=== PATIENT | male | born 1950 | race Caucasian/White ===

== ENCOUNTER 2024-04-19 07:37 | Day surgery (SDC) | payer OTHER, SELFPAY ==
[2024-04-14 11:12] VITALS: BMI 36.2
[2024-04-19 09:28] VITALS: PULSE 111; RESP 18; TEMP 36.2
--- NOTE | 2024-04-19 09:28 | P.CONAN_ITS ---
HPI - Anesthesia Eval Consult details Narrative: 73 yo male patient for Right Cataract extraction, IOL insertion PMFSH Past Medical History Medical History Cataracts, bilateral Personal history of COVID-19 (~04/2023) Umbilical hernia Hx of hypokalemia Varicose veins of legs Wears dentures Dependent on walker for ambulation Bailey's cyst Osteoarthritis Low vitamin D level Hx of deep venous thrombosis Anemia Chronic renal insufficiency Depression Dizziness Hx of seizure disorder LEÓN (obstructive sleep apnea) QUINAULT (hard of hearing) Moderate cognitive impairment Tremor Murmur Aortic stenosis HLD (hyperlipidemia) CHF (congestive heart failure) HTN (hypertension) Family History Family history of problems with anesthesia: No Surgical History History of Problems with Anesthesia: No Social History Social History Are you a primary healthcare risk control consultant to a significant other at home: No Patient Tobacco Use Status: Never used Tobacco Use of substances other than those prescribed or required for medical reasons: No Are you DNR?: Yes Advance Directives: No Advance Directives Information Provided: Yes Advance Directives on File: No Recently lost weight without trying: No Nutrition Risks: No Nutritional Risk Meds Allergies Allergy/AdvReac Type Severity Reaction Status Date / Time No Known Allergies Allergy Verified 04/16/24 08:08 Home Medications ?Medication ?Instructions ?Recorded ?Confirmed ?Last Taken ?Type apixaban 5 mg tablet 5 mg PO BID 04/14/24 04/14/24 Unknown History cholecalciferol (vitamin D3) 125 125 mcg PO DAILY 04/14/24 04/14/24 Unknown History mcg (5,000 unit) tablet (Vitamin D3) divalproex 500 mg tablet,extended 1,000 mg PO BID 04/14/24 04/14/24 Unknown History release 24 hr hydrochlorothiazide 25 mg tablet 25 mg PO DAILY 04/14/24 04/14/24 Unknown History melatonin 3 mg tablet 3 mg PO BEDTIME 04/14/24 04/14/24 Unknown History omega-3 fatty acids-fish oil 684 1 cap PO DAILY 04/14/24 04/14/24 Unknown History mg-1,200 mg capsule,delayed release phenytoin sodium extended 100 mg 200 mg PO BID 04/14/24 04/14/24 Unknown History capsule potassium chloride 20 mEq 20 meq PO DAILY 04/14/24 04/14/24 Unknown History tablet,extended release prazosin 1 mg capsule 1 mg PO BEDTIME 04/14/24 04/14/24 Unknown History propranolol 10 mg tablet 10 mg PO BID 04/14/24 04/14/24 Unknown History rosuvastatin 20 mg tablet 20 mg PO DAILY 04/14/24 04/14/24 Unknown History torsemide 20 mg tablet 10 mg PO QPM 04/14/24 04/14/24 Unknown History torsemide 20 mg tablet 20 mg PO DAILY 04/14/24 04/14/24 Unknown History trazodone 50 mg tablet 50 mg PO BEDTIME 04/14/24 04/14/24 Unknown History Exam Height,Weight and Vital Signs: Height 5 ft 9 in Weight 111.13 kg Vital Signs Temp Pulse Resp 04/19/24 09:28 97.2 F 111 H 18 Airway Mallampati Class: II TM Dist: >3cm Neck ROM: Full Denture: Upper Loose/Missing/Broken Teeth: Yes (Top full denture. No teeth bottom) Heart: RRR + systolic murmur Lungs: CTAB Assessment and Plan Assessment Anesthesia Assessment: Anesthesia Plan Discussed and Chart Reviewed Final Anesthetic Review Family History of Problems with Anesthesia: No History of Problems with Anesthesia: No NPO: Yes ASA Class: III Final Preanesthetic Review: No Changes in Pt Med Stat, Meds/Allgs Chart Reviewed, Consent Obtained/Reviewed, Anes Risks/Benef Reviewed and DNR Form (If Appl.) (DNR order suspended leslie-op per patient's wishes) Patient Risk: Intermediate Procedure Risk: Low Assessment/Block/Sedation in SS: Assess/Block/Sedation-SS Anesthetic Plan Anesthetic Plan: MAC: Disposition: Standard PACU
[2024-04-19 09:29] VITALS: BMI 32.2
[2024-04-19 09:50] VITALS: BP 157/81; PULSE 74; RESP 18; TEMP 36.2; O2SAT 95
--- NOTE | 2024-04-19 10:01 | MHC.SHP ---
Pre-Procedural Eval Section A - 24 Hr Update-Section A only Date of Service: 04/19/24 The patient is an INPATIENT: No Changes since office visit: No Cold of Flu in the past 2 weeks, No New Medical Problems, No Changes in Medication and No Patient answered all questions The patient has been examined within 24 hours of the surgical procedure. The History & Physical has been completed within 30 days and I have reviewed it.: Yes Section B - Complete if H&P > 30 days Chief Complaint: Age-related nuclear cataract, right eye Allergies: Allergies Allergy/AdvReac Type Severity Reaction Status Date / Time No Known Allergies Allergy Verified 04/16/24 08:08 Plan Diagnosis/Plan: Unchanged I have reviewed the history and physical and performed a pertinent physical examination on my patient. No changes have occurred unless specified. Time Spent With Patient Time: Total time managing care of this patient today ____ minutes.
--- NOTE | 2024-04-19 10:01 | HO.PNOPHT ---
Ophthalmology Procedure Procedure Date of Service: 04/19/24 Ophthalmology Viscoelastic: Healon Duet Dual Pack Pro Ophthalmology Lenses: IOL Acrysof MP - MA60AC (23) Procedure Notes: PREOPERATIVE DIAGNOSIS: Decreased visual acuity right eye secondary to cataract POSTOPERATIVE DIAGNOSIS: Same PROCEDURE: Right cataract extraction with intraocular lens insertion SURGEON: Isaiah Matthews M.D. ANESTHESIA: Topical/MAC ESTIMATED BLOOD LOSS: None COMPLICATIONS: None After obtaining informed consent, the patient was brought to the operating room suite and placed in the supine position. After adequate sedation per anesthesia, topical drops of Tetracaine were given to the right eye. The eye was then prepped and draped in the usual sterile fashion. The operating room microscope was then positioned over the operative eye and a lid speculum placed. A paracentesis was created. Viscoelastic was then instilled into the anterior chamber. A three plane incision was then created temporally, utilizing a 2.85 mm keratome. Poor dilation required placement of Malyugin ring.Capsulotomy forceps were then utilized to create a circular tear capsulotomy. Hydrodissection and hydrodelineation were carried out until adequate mobilization of the nucleus occurred. Phacoemulsification was then utilized to remove the dense central nucleus followed by removal of the cortical material utilizing the automated aspiration irrigation unit. Viscoelastic was instilled into the posterior capsular bag followed by placement of a posterior chamber intraocular lens without difficulty. The Malyugin ring was removed. The residual Viscoelastic was then removed utilizing the automated IA machine. The wound was checked and found to be watertight. The patient tolerated the procedure well and the lid speculum was removed. Intracameral injection of Vigamox 0.1 mL followed by a subtenon injection of Kenalog-40 0.2 mL were administered. The patient will be seen in the a.m.
[2024-04-19 10:35] VITALS: BP 149/96; PULSE 48; RESP 16; TEMP 36.6; O2SAT 100
== END 2024-04-19 10:56 | disposition home or self-care (01) ==
PROVIDERS: Visit Provider Ophthalmology
PROC: (CPT 66985; principal; 2024-04-19 10:00)
DX: H25.11 Age-related nuclear cataract, right eye (principal); H52.4 Presbyopia; H40.033 Anatomical narrow angle, bilateral; H18.413 Arcus senilis, bilateral; I13.0 Hypertensive heart and chronic kidney disease with heart failure and stage 1 through stage 4 chronic kidney disease, or unspecified chronic kidney disease; N18.31 Chronic kidney disease, stage 3a; I50.32 Chronic diastolic (congestive) heart failure; D64.9 Anemia, unspecified; E78.00 Pure hypercholesterolemia, unspecified; G40.909 Epilepsy, unspecified, not intractable, without status epilepticus; R25.1 Tremor, unspecified; F03.90 Unspecified dementia, unspecified severity, without behavioral disturbance, psychotic disturbance, mood disturbance, and anxiety; G47.33 Obstructive sleep apnea (adult) (pediatric); F32.5 Major depressive disorder, single episode, in full remission; F41.9 Anxiety disorder, unspecified; Z79.01 Long term (current) use of anticoagulants; Z79.899 Other long term (current) drug therapy; Z66 Do not resuscitate
CPT/HCPCS: 66984; J2250; J3301; V2630

== ENCOUNTER 2024-05-03 08:48 | Day surgery (SDC) | payer OTHER, SELFPAY ==
[2024-04-14 11:21] VITALS: BMI 36.2
[2024-05-03 10:29] VITALS: BP 136/58; PULSE 66; RESP 20; TEMP 36.7; O2SAT 96
[2024-05-03] MEDS: Phenylephrine HCL 2.5% Oph SoL 2 ML BOTTLE 1 DROP EYE-LEFT ×3 (10:40→10:41)
[2024-05-03] MEDS: Cyclopentolate 1 % Ophth Sol 2 ML DRPBTL 1 DROP EYE-LEFT ×3 (10:40→10:41)
[2024-05-03] MEDS: Tetracaine HCl/PF 0.5% Oph Sol 4 ML DROPS 1 DROP EYE-LEFT (10:40)
[2024-05-03] MEDS: Lactated Ringers 500 ML 20 ML IVCONT (10:40)
[2024-05-03] MEDS: Ketorolac Tromethamine 0.5% Op 10 ML DROPS 1 DROP EYE-LEFT ×3 (10:40→10:41)
[2024-05-03] MEDS: Tropicamide 1 % Ophth Sol 3 ML BTL 1 DROP EYE-LEFT ×3 (10:40→10:41)
--- NOTE | 2024-05-03 10:59 | PC.NURSE ---
patient pulse down to 32-[address] ramirez at bedside pt a/ox3 denies dizziness pwd back to nsr okay to proceed
--- NOTE | 2024-05-03 11:06 | HO.ANESPROP2 ---
HPI - Anesthesia Eval Consult details Narrative: 73 yo M presenting for left cataract extraction IOL insertion. DNR/DNI. Had right eye done previously. FOR[facility]LY [facility] Past Medical History Medical History Cataracts, bilateral Personal history of COVID-19 (~04/2023) Umbilical hernia Hx of hypokalemia Varicose veins of legs Wears dentures Dependent on walker for ambulation Bailey's cyst Osteoarthritis Low vitamin D level Hx of deep venous thrombosis Anemia Chronic renal insufficiency Depression Dizziness Hx of seizure disorder LEÓN (obstructive sleep apnea) SAMISH (hard of hearing) Moderate cognitive impairment Tremor Murmur Aortic stenosis HLD (hyperlipidemia) CHF (congestive heart failure) HTN (hypertension) Family History Family history of problems with anesthesia: No Surgical History Surgical History (Updated 04/27/24 @ 14:04 by Parris Pacheco RN) Hx of right cataract extraction (04/19/24) History of Problems with Anesthesia: No Social History Social History (Updated 04/27/24 @ 14:08 by Parris Pacheco RN) Household Members: Other Housing: Assisted Living Facility Are you a primary home care companion to a significant other at home: No Patient Tobacco Use Status: Never used Tobacco Use of substances other than those prescribed or required for medical reasons: No Are you DNR?: Yes Advance Directives: No Advance Directives Information Provided: Yes Advance Directives on File: No Meds Allergies Allergy/AdvReac Type Severity Reaction Status Date / Time No Known Allergies Allergy Verified 04/16/24 08:08 Active Medications: Current Medications Lactated Ringer's (Lr) 500 mls @ 20 mls/hr IVCONT .Q24H RAY Last Admin: 05/03/24 10:40 Dose: 20 mls/hr Povidone Iodine (Povidone Iodine 5 % Ophth Soln 30 Ml Bottle) 1 appl EYE-LEFT PREOP PRN PRN Reason: Pre-Op Surgical Implant Prophy Home Medications ?Medication ?Instructions ?Recorded ?Confirmed ?Last Taken ?Type apixaban 5 mg tablet 5 mg PO BID 04/14/24 04/14/24 05/01/24 History cholecalciferol (vitamin D3) 125 125 mcg PO DAILY 04/14/24 04/14/24 Unknown History mcg (5,000 unit) tablet (Vitamin D3) divalproex 500 mg tablet,extended 1,000 mg PO BID 04/14/24 04/14/24 Unknown History release 24 hr hydrochlorothiazide 25 mg tablet 25 mg PO DAILY 04/14/24 04/14/24 Unknown History melatonin 3 mg tablet 3 mg PO BEDTIME 04/14/24 04/14/24 Unknown History omega-3 fatty acids-fish oil 684 1 cap PO DAILY 04/14/24 04/14/24 05/01/24 History mg-1,200 mg capsule,delayed release phenytoin sodium extended 100 mg 200 mg PO BID 04/14/24 04/14/24 Unknown History capsule potassium chloride 20 mEq 20 meq PO DAILY 04/14/24 04/14/24 Unknown History tablet,extended release prazosin 1 mg capsule 1 mg PO BEDTIME 04/14/24 04/14/24 Unknown History propranolol 10 mg tablet 10 mg PO BID 04/14/24 04/14/24 Unknown History rosuvastatin 20 mg tablet 20 mg PO DAILY 04/14/24 04/14/24 Unknown History torsemide 20 mg tablet 10 mg PO QPM 04/14/24 04/14/24 Unknown History torsemide 20 mg tablet 20 mg PO DAILY 04/14/24 04/14/24 Unknown History trazodone 50 mg tablet 50 mg PO BEDTIME 04/14/24 04/14/24 Unknown History Exam Exam Date and Time: May 03, 2024 1108 Height,Weight and Vital Signs: Height 5 ft 9 in Weight 111.13 kg Last Vital Signs Temp 98.1 F 05/03/24 10:29 Pulse 66 05/03/24 10:29 Resp 20 05/03/24 10:29 BP 136/58 L 05/03/24 10:29 Pulse Ox 96 05/03/24 10:29 O2 Del Method Room Air 05/03/24 10:29 Airway Mallampati Class: II TM Dist: >3cm Neck ROM: Limited Denture: Upper and Lower Heart: S1S2 Lungs: CTAB Assessment and Plan Assessment Anesthesia Assessment: Anesthesia Plan Discussed and Chart Reviewed Final Anesthetic Review Family History of Problems with Anesthesia: No History of Problems with Anesthesia: No NPO: Yes ASA Class: III Final Preanesthetic Review: No Changes in Pt Med Stat, Meds/Allgs Chart Reviewed, Consent Obtained/Reviewed and Anes Risks/Benef Reviewed Patient Risk: Intermediate Procedure Risk: Low Anesthetic Plan Anesthetic Plan: MAC: and Agree w/ Assess. and Plan Disposition: Standard PACU
--- NOTE | 2024-05-03 11:28 | MHC.SHP ---
Pre-Procedural Eval Section A - 24 Hr Update-Section A only Date of Service: 05/03/24 The patient is an INPATIENT: No Changes since office visit: No Cold of Flu in the past 2 weeks, No New Medical Problems, No Changes in Medication and No Patient answered all questions The patient has been examined within 24 hours of the surgical procedure. The History & Physical has been completed within 30 days and I have reviewed it.: Yes Section B - Complete if H&P > 30 days Chief Complaint: Age-related nuclear cataract, left eye Allergies: Allergies Allergy/AdvReac Type Severity Reaction Status Date / Time No Known Allergies Allergy Verified 04/16/24 08:08 Plan Diagnosis/Plan: Unchanged I have reviewed the history and physical and performed a pertinent physical examination on my patient. No changes have occurred unless specified. Time Spent With Patient Time: Total time managing care of this patient today ____ minutes.
--- NOTE | 2024-05-03 11:28 | HO.PNOPHT ---
Ophthalmology Procedure Procedure Date of Service: 05/03/24 Ophthalmology Viscoelastic: Healon Duet Dual Pack Pro Ophthalmology Lenses: IOL Acrysof MP - MA60AC (22.5) Procedure Notes: PREOPERATIVE DIAGNOSIS: Decreased visual acuity left eye secondary to cataract POSTOPERATIVE DIAGNOSIS: Same PROCEDURE: Left cataract extraction with intraocular lens insertion SURGEON: Isaiah Matthews M.D. ANESTHESIA: Topical/MAC ESTIMATED BLOOD LOSS: None COMPLICATIONS: None After obtaining informed consent, the patient was brought to the operation room suite and placed in the supine position. After adequate sedation per anesthesia, topical drops of Tetracaine were given to the left eye. The eye was then prepped and draped in the usual sterile fashion. The operating room microscope was then positioned over the operative eye and a lid speculum placed. A paracentesis was created. Viscoelastic was then instilled into the anterior chamber. A three plane incision was then created temporally, utilizing a 2.85 mm keratome. Capsulotomy forceps were then utilized to create a circular tear capsulotomy. Hydrodissection and hydrodelineation were carried out until adequate mobilization of the nucleus occurred. Phacoemulsification was then utilized to remove the dense central nucleus followed by removal of the cortical material utilizing the automated aspiration irrigation unit. Viscoat elastic was instilled into the posterior capsular bag followed by placement of a posterior chamber intraocular lens without difficulty. The residual Viscoat elastic was then removed utilizing the automated IA machine. The wound was check and found to be watertight. The patient tolerated the procedure well and the lid speculum was removed. Intracameral injection of Vigamox 0.1 mL followed by a subtenon injection of Kenalog-40 0.2 mL were administered. The patient will be seen in the a.m.
[2024-05-03 12:04] VITALS: BP 97/40; PULSE 83; RESP 16; TEMP 36.1; O2SAT 97
[2024-05-03 12:10] VITALS: BP 141/74; PULSE 64; RESP 16; O2SAT 99
[2024-05-03 12:19] VITALS: BP 153/89; PULSE 68; RESP 16; TEMP 36.2; O2SAT 99
[2024-05-03 12:34] VITALS: BP 136/95; PULSE 66; RESP 16; TEMP 36.2; O2SAT 99
== END 2024-05-03 12:42 | disposition home or self-care (01) ==
PROVIDERS: Visit Provider Ophthalmology
PROC: (CPT 66985; principal; 2024-05-03 11:10)
DX: H25.12 Age-related nuclear cataract, left eye (principal); H52.4 Presbyopia; H40.033 Anatomical narrow angle, bilateral; H18.413 Arcus senilis, bilateral; I10 Essential (primary) hypertension; E78.00 Pure hypercholesterolemia, unspecified; F03.90 Unspecified dementia, unspecified severity, without behavioral disturbance, psychotic disturbance, mood disturbance, and anxiety; G40.909 Epilepsy, unspecified, not intractable, without status epilepticus; R25.1 Tremor, unspecified; G47.33 Obstructive sleep apnea (adult) (pediatric); Z79.899 Other long term (current) drug therapy; Z66 Do not resuscitate
CPT/HCPCS: 66984; J2250; J2704; J3301; V2630